=== PATIENT | female | born 1940 | race Caucasian/White ===

== ENCOUNTER 2022-12-28 08:30 | Emergency (ER) | payer BC, MEDICARE, OTHER | END 2022-12-28 10:29 | disposition home or self-care (01) | LOC: JD.ED 08:30 | DX: M79.621 Pain in right upper arm (principal); I10 Essential (primary) hypertension; E11.9 Type 2 diabetes mellitus without complications; Z91.012 Allergy to eggs; Z86.16 Personal history of COVID-19; W19.XXXA Unspecified fall, initial encounter | CPT/HCPCS: 73060-26-RT; 73060-RT; 99283 ==

== ENCOUNTER 2023-05-10 17:25 | Emergency (ER) | payer MEDICARE ==
[2023-05-10] MEDS ORDERED: Sodium Chloride 0.9% 10 ML Syringe FLUSH PRN (18:30)
[2023-05-10 18:37] LABS: BASOPHILS ABSOLUTE AUTO 0.02 K/mm3 (0.01-0.08); BASOPHILS PERCENT AUTO 0.3 % (0.1-1.2); EOSINOPHILS ABSOLUTE AUTO 0.09 K/mm3 (0.04-0.36); EOSINOPHILS PERCENT AUTO 1.6 (0.7-5.8); HEMATOCRIT 40.8 % (34.1-44.9); HEMOGLOBIN 13.7 gm/dl (11.2-15.7); LYMPHOCYTES PERCENT AUTO 46.6 % (19.3-51.7); MEAN CORPUSCULAR HEMOGLOBIN 30.9 pg (25.6-32.2); MEAN CORPUSCULAR HGB CONC 33.6 g/dl (32.2-35.5); MEAN CORPUSCULAR VOLUME 92.1 fl (79.4-94.8); MEAN PLATELET VOLUME 9.8 fl (9.4-12.3); MONOCYTES ABSOLUTE AUTO 0.52 K/mm3 (0.24-0.36); NEUTROPHILS ABSOLUTE AUTO 2.46 K/mm3 (1.56-6.13); NEUTROPHILS PERCENT AUTO 42.5 % (34.0-71.1); PLATELET COUNT,PLT 203 K/mm3 (182-369); RED BLOOD CELL COUNT 4.43 M/mm3 (3.98-5.22); WHITE BLOOD CELL COUNT,WBC 5.79 K/mm3 (3.98-10.04)
[2023-05-10 18:46] LABS: INR 1.04; PROTHROMBIN TIME 11.1 SECONDS (9.7-12.0)
[2023-05-10 18:48] LABS: PTT,PARTIAL THROMBOPLSTIN TIME 25.6 SECONDS (21.7-31.4)
[2023-05-10 19:03] LABS: D-DIMER QUANTITATIVE 0.56 mg/L (0.19-0.50)
[2023-05-10 19:06] LABS: A/G RATIO 1.2 (1-2); ALANINE AMINOTRANSFERASE,ALT 37 U/L (14-59); ALBUMIN 3.6 g/dl (3.4-5.0); ALKALINE PHOSPHATASE 80 U/L (46-116); ANION GAP 11.7 (5-15); ASPARTATE AMNIOTRANSFERASE,AST 26 U/L (15-37); BILIRUBIN TOTAL 0.6 mg/dL (0.2-1.0); BLOOD UREA NITROGEN,BUN 13 mg/dL (7-18); CALCIUM 9.3 mg/dL (8.5-10.1); CARBON DIOXIDE,CO2 26 mEq/L (21-32); CHLORIDE,CL 104 mEq/L (98-107); ESTIMATED GFR 57 mL/min (>60); GLUCOSE RANDOM 217 mg/dL (70-99); MAGNESIUM 1.8 mg/dL (1.8-2.4); POTASSIUM,K 3.7 mEq/L (3.5-5.1); PROTEIN TOTAL,TP 6.7 g/dl (6.4-8.2); SODIUM,NA 138 mEq/L (136-145)
[2023-05-10 19:09] LABS: TROPONIN I HIGH SENSITIVITY < 4 pg/mL (<=51)
== END 2023-05-10 22:20 | disposition home or self-care (01) ==
LOC: JD.ED 17:25
DX: R07.89 Other chest pain (principal); E11.9 Type 2 diabetes mellitus without complications; I10 Essential (primary) hypertension; E03.9 Hypothyroidism, unspecified; Z91.012 Allergy to eggs; Z86.16 Personal history of COVID-19
CPT/HCPCS: 36415; 71045; 80053; 83735; 83880; 84484; 85025; 85379; 85610; 85730; 93005; 99285; J3490

== ENCOUNTER 2023-05-31 10:18 | Emergency (ER) | payer MEDICARE ==
[2023-05-31] MEDS ORDERED: Acetaminophen/HYDROcodone 325-10 MG Tab PO ONE (11:11)
== END 2023-05-31 12:15 | disposition home or self-care (01) ==
LOC: JD.ED 10:18
DX: M25.511 Pain in right shoulder (principal); I10 Essential (primary) hypertension; E11.9 Type 2 diabetes mellitus without complications; E03.9 Hypothyroidism, unspecified; Z91.012 Allergy to eggs; Z86.16 Personal history of COVID-19
CPT/HCPCS: 73030; 99283; A9270

== ENCOUNTER 2023-06-26 18:59 | Emergency (ER) | payer MEDICARE ==
[2023-06-26] MEDS ORDERED: Sodium Chloride 0.9% 10 ML Syringe FLUSH PRN (19:26)
[2023-06-26 19:37] LABS: BASOPHILS ABSOLUTE AUTO 0.04 K/mm3 (0.01-0.08); BASOPHILS PERCENT AUTO 0.5 % (0.1-1.2); EOSINOPHILS ABSOLUTE AUTO 0.24 K/mm3 (0.04-0.36); EOSINOPHILS PERCENT AUTO 3.2 (0.7-5.8); HEMATOCRIT 41.9 % (34.1-44.9); HEMOGLOBIN 14.1 gm/dl (11.2-15.7); IMMATURE GRAN ABSOLUTE AUTO 0.01 K/mm3 (0.00-0.10); IMMATURE GRAN PERCENT AUTO 0.1 % (<=1.0); LYMPHOCYTES ABSOLUTE AUTO 3.62 K/mm3 (1.18-3.74); LYMPHOCYTES PERCENT AUTO 47.7 % (19.3-51.7); MEAN CORPUSCULAR HEMOGLOBIN 30.4 pg (25.6-32.2); MEAN CORPUSCULAR HGB CONC 33.7 g/dl (32.2-35.5); MEAN CORPUSCULAR VOLUME 90.3 fl (79.4-94.8); MEAN PLATELET VOLUME 9.4 fl (9.4-12.3); MONOCYTES ABSOLUTE AUTO 0.67 K/mm3 (0.24-0.36); MONOCYTES PERCENT AUTO 8.8 % (4.7-12.5); NEUTROPHILS ABSOLUTE AUTO 3.01 K/mm3 (1.56-6.13); NEUTROPHILS PERCENT AUTO 39.7 % (34.0-71.1); PLATELET COUNT,PLT 250 K/mm3 (182-369); RED BLOOD CELL COUNT 4.64 M/mm3 (3.98-5.22); WHITE BLOOD CELL COUNT,WBC 7.59 K/mm3 (3.98-10.04)
[2023-06-26 19:47] LABS: A/G RATIO 1.1 (1-2); ALBUMIN 3.6 g/dl (3.4-5.0); ANION GAP 13.3 (5-15); BILIRUBIN TOTAL 0.5 mg/dL (0.2-1.0); CALCIUM 9.9 mg/dL (8.5-10.1); EST CRCL DRUG DOSING (CG) 37.45 mL/min; MAGNESIUM 1.9 mg/dL (1.8-2.4); POTASSIUM,K 4.3 mEq/L (3.5-5.1); PROTEIN TOTAL,TP 6.9 g/dl (6.4-8.2)
[2023-06-26 19:56] LABS: INR 1.17; PROTHROMBIN TIME 12.4 SECONDS (9.7-12.0)
[2023-06-26 20:02] LABS: D-DIMER QUANTITATIVE 0.8 mg/L (0.19-0.50)
== END 2023-06-26 20:30 | disposition home or self-care (01) ==
LOC: JD.ED 18:59
DX: R07.89 Other chest pain (principal); I25.10 Atherosclerotic heart disease of native coronary artery without angina pectoris; E78.00 Pure hypercholesterolemia, unspecified; I10 Essential (primary) hypertension; K21.9 Gastro-esophageal reflux disease without esophagitis; E11.9 Type 2 diabetes mellitus without complications; E03.9 Hypothyroidism, unspecified; Z91.012 Allergy to eggs; Z86.711 Personal history of pulmonary embolism; Z86.16 Personal history of COVID-19
CPT/HCPCS: 36415; 71045; 80053; 83735; 84484; 85025; 85379; 85610; 93005; 99285; J3490; 93010; 99284

== ENCOUNTER 2023-07-11 20:30 | Emergency (ER) | payer MEDICARE ==
[2023-07-11] MEDS ORDERED: Sodium Chloride 0.9% 10 ML Syringe FLUSH PRN (20:47)
[2023-07-11 20:57] LABS: BASOPHILS ABSOLUTE AUTO 0.02 K/mm3 (0.01-0.08); BASOPHILS PERCENT AUTO 0.3 % (0.1-1.2); EOSINOPHILS PERCENT AUTO 1.7 (0.7-5.8); HEMATOCRIT 40.7 % (34.1-44.9); IMMATURE GRAN ABSOLUTE AUTO 0.01 K/mm3 (0.00-0.10); IMMATURE GRAN PERCENT AUTO 0.2 % (<=1.0); LYMPHOCYTES ABSOLUTE AUTO 2.22 K/mm3 (1.18-3.74); LYMPHOCYTES PERCENT AUTO 38.7 % (19.3-51.7); MEAN CORPUSCULAR HEMOGLOBIN 30.6 pg (25.6-32.2); MEAN CORPUSCULAR HGB CONC 34.4 g/dl (32.2-35.5); MEAN CORPUSCULAR VOLUME 89.1 fl (79.4-94.8); MEAN PLATELET VOLUME 9.3 fl (9.4-12.3); MONOCYTES ABSOLUTE AUTO 0.55 K/mm3 (0.24-0.36); MONOCYTES PERCENT AUTO 9.6 % (4.7-12.5); NEUTROPHILS ABSOLUTE AUTO 2.84 K/mm3 (1.56-6.13); NEUTROPHILS PERCENT AUTO 49.5 % (34.0-71.1); PLATELET COUNT,PLT 172 K/mm3 (182-369); RED BLOOD CELL COUNT 4.57 M/mm3 (3.98-5.22); WHITE BLOOD CELL COUNT,WBC 5.74 K/mm3 (3.98-10.04)
[2023-07-11 21:16] LABS: INR 1.4; PROTHROMBIN TIME 14.6 SECONDS (9.7-12.0)
[2023-07-11 21:28] LABS: A/G RATIO 1.1 (1-2); ALANINE AMINOTRANSFERASE,ALT 36 U/L (14-59); ALBUMIN 3.5 g/dl (3.4-5.0); ALKALINE PHOSPHATASE 93 U/L (46-116); ANION GAP 14.5 (5-15); ASPARTATE AMNIOTRANSFERASE,AST 22 U/L (15-37); BILIRUBIN TOTAL 0.5 mg/dL (0.2-1.0); BLOOD UREA NITROGEN,BUN 20 mg/dL (7-18); BUN/CREATININE RATIO 15.4 (14-18); CALCIUM 9.6 mg/dL (8.5-10.1); CARBON DIOXIDE,CO2 25 mEq/L (21-32); CHLORIDE,CL 101 mEq/L (98-107); CREATININE 1.3 mg/dL (0.55-1.02); ESTIMATED GFR 41 mL/min (>60); GLUCOSE RANDOM 256 mg/dL (70-99); MAGNESIUM 1.8 mg/dL (1.8-2.4); POTASSIUM,K 4.5 mEq/L (3.5-5.1); PROTEIN TOTAL,TP 6.7 g/dl (6.4-8.2); SODIUM,NA 136 mEq/L (136-145)
[2023-07-11 21:29] LABS: TROPONIN I HIGH SENSITIVITY < 4 pg/mL (<=51)
[2023-07-11] MEDS ORDERED: Aspirin 81 MG Tab.Chew PO ONE (22:06)
[2023-07-11 23:10] LABS: APPEARANCE,URINE SLT CLOUDY (Clear); BILIRUBIN,URINE NEGATIVE (Negative); COLOR,URINE YELLOW (Yellow); GLUCOSE,URINE 3+ (Negative); KETONES,URINE NEGATIVE (Negative); LEUKOCYTE ESTERASE,URINE NEGATIVE (Negative); NITRITE,URINE POSITIVE (Negative); OCCULT BLOOD,URINE NEGATIVE (Negative); PROTEIN,URINE NEGATIVE (Negative); UROBILINOGEN,URINE 0.2 (0.2-1.0)
[2023-07-11 23:20] LABS: BACTERIA,URINE MANY /hpf (FEW); EPITHELIAL CELLS,URINE 0-5 /hpf (0-5); RBC,URINE NOT SEEN /hpf (0-5); WBC CLUMPS,URINE RARE /hpf (NOT SEEN)
[2023-07-11 23:21] LABS: MUCUS,URINE NOT SEEN /hpf (FEW)
== END 2023-07-12 00:37 | disposition home or self-care (01) ==
LOC: JD.ED 20:30
DX: R07.9 Chest pain, unspecified (principal); I25.10 Atherosclerotic heart disease of native coronary artery without angina pectoris; I10 Essential (primary) hypertension; E11.9 Type 2 diabetes mellitus without complications; Z91.012 Allergy to eggs; Z86.16 Personal history of COVID-19; Z87.891 Personal history of nicotine dependence
CPT/HCPCS: 36415; 71045; 71045-26; 80053; 81001; 83735; 83880; 84484; 85025; 85379; 85610; 85730; 93005; 93010; 99284; 99285; A9270-GY

== ENCOUNTER 2024-04-08 03:12 | Emergency (ER) | payer MEDICARE ==
[2024-04-08] MEDS: Acetaminophen 325 MG Tab PO ONE (03:38)
== END 2024-04-08 05:28 | disposition home or self-care (01) ==
LOC: JD.ED 03:12
DX: S00.03XA Contusion of scalp, initial encounter (principal); M25.551 Pain in right hip; I48.91 Unspecified atrial fibrillation; Z79.01 Long term (current) use of anticoagulants; I25.10 Atherosclerotic heart disease of native coronary artery without angina pectoris; E78.00 Pure hypercholesterolemia, unspecified; K21.9 Gastro-esophageal reflux disease without esophagitis; E11.9 Type 2 diabetes mellitus without complications; E03.9 Hypothyroidism, unspecified; E66.9 Obesity, unspecified; Z95.5 Presence of coronary angioplasty implant and graft; Z79.899 Other long term (current) drug therapy; Z79.84 Long term (current) use of oral hypoglycemic drugs; Z88.7 Allergy status to serum and vaccine; Z88.8 Allergy status to other drugs, medicaments and biological substances; W18.2XXA Fall in (into) shower or empty bathtub, initial encounter; Z68.26 Body mass index [BMI] 26.0-26.9, adult; Y92.002 Bathroom of unspecified non-institutional (private) residence as the place of occurrence of the external cause
CPT/HCPCS: 70450; 72125; 72170; 73502; 99284; A9270; 99283

== ENCOUNTER 2024-06-04 22:27 | Inpatient (IN) | payer MEDICARE ==
[2024-06-05 00:08] LABS: BASOPHILS PERCENT AUTO 0.1 % (0.0-1.0); EOSINOPHILS ABSOLUTE AUTO 0.2 K/mm3 (0.0-0.4); EOSINOPHILS PERCENT AUTO 1.7 % (0.0-6.0); HEMATOCRIT 39.3 % (37.0-47.0); HEMOGLOBIN 13.8 gm/dl (12.0-16.0); IMMATURE GRAN ABSOLUTE AUTO 0.04 K/mm3 (0.00-0.05); IMMATURE GRAN PERCENT AUTO 0.4 % (0.0-0.4); LYMPHOCYTES ABSOLUTE AUTO 2.5 K/mm3 (1.0-4.8); LYMPHOCYTES PERCENT AUTO 26.7 % (24.0-44.0); MEAN CORPUSCULAR HEMOGLOBIN 30.9 pg (28.0-32.0); MEAN CORPUSCULAR HGB CONC 35.1 g/dl (32.0-36.0); MEAN CORPUSCULAR VOLUME 88.1 fl (83.0-99.0); MEAN PLATELET VOLUME 9.8 fl (9.4-12.3); MONOCYTES ABSOLUTE AUTO 0.7 K/mm3 (0.0-0.8); MONOCYTES PERCENT AUTO 6.9 % (0.0-8.0); NEUTROPHILS ABSOLUTE AUTO 6.1 K/mm3 (1.8-7.7); NEUTROPHILS PERCENT AUTO 64.2 % (41.0-71.0); PLATELET COUNT,PLT 181 K/mm3 (150-400); RED BLOOD CELL COUNT 4.46 M/mm3 (4.10-5.30)
[2024-06-05 00:26] LABS: INR 1.07; PROTHROMBIN TIME 11.3 SECONDS (9.7-12.0)
[2024-06-05 00:27] LABS: PTT,PARTIAL THROMBOPLSTIN TIME 23.7 SECONDS (21.7-31.4)
[2024-06-05 00:30] LABS: A/G RATIO 1.1 (1-2); ALBUMIN 3.3 g/dl (3.4-5.0); ANION GAP 11.2 (5-15); BILIRUBIN TOTAL 0.6 mg/dL (0.2-1.0); CALCIUM 9.4 mg/dL (8.5-10.1); CREATININE 0.8 mg/dL (0.55-1.02); EST CRCL DRUG DOSING (CG) 42.14 mL/min; POTASSIUM,K 4.2 mEq/L (3.5-5.1); PROTEIN TOTAL,TP 6.3 g/dl (6.4-8.2)
[2024-06-05] MEDS ORDERED: Naloxone 0.4 MG/ML SDV IVPUSH PRN (00:32)
[2024-06-05] MEDS: Morphine 2 MG/ML SYRINGE IVPUSH PRN (00:42)
[2024-06-05] MEDS: Sodium Chloride 0.9% 10 ML Syringe FLUSH PRN (00:43)
[2024-06-05] MEDS ORDERED: Ondansetron 4 MG/2 ML SDV IVPUSH PRN (06:38)
[2024-06-05] MEDS ORDERED: Docusate Sodium 100 MG Cap PO PRN (09:08)
[2024-06-05] MEDS ORDERED: Heparin Sodium 5,000 Units/ML Vial SUBCUT SCH (09:30)
[2024-06-05] MEDS: Metoprolol Tartrate 100 MG Tab PO SCH (10:16)
[2024-06-05] MEDS: Sertraline 25 MG Tab PO SCH (10:17)
[2024-06-05] MEDS: Insulin Lispro 100 Unit/ML 3 ML KwikPen SUBCUT SCH (11:31)
[2024-06-05] MEDS: Insulin Glargine,Human Rec. Analog 100 Units/ML 3 ML Pen SUBCUT SCH (12:56)
[2024-06-05] MEDS: Nystatin Topical Powder 15 GM Bottle TOP SCH (14:14)
[2024-06-05] MEDS ORDERED: Cyclobenzaprine 10 MG Tab PO PRN (15:17)
[2024-06-05] MEDS: Isosorbide Mononitrate 30 MG Tab.ER PO SCH (16:57)
[2024-06-05] MEDS: Insulin Glargine,Human Rec. Analog 100 Units/ML 3 ML Pen SUBCUT ONE (18:07)
[2024-06-05] MEDS: Temazepam 15 MG Cap PO SCH (21:25)
[2024-06-05] MEDS: Donepezil 10 MG Tab PO SCH (21:26)
[2024-06-05] MEDS: Apixaban 2.5 MG Tab PO SCH (21:26)
[2024-06-05] MEDS: Rosuvastatin 10 MG Tab PO SCH (21:29)
[2024-06-05] MEDS: traZODone 50 MG Tab PO SCH (21:30)
[2024-06-06 04:55] LABS: BASOPHILS PERCENT AUTO 0.1 % (0.0-1.0); EOSINOPHILS ABSOLUTE AUTO 0.2 K/mm3 (0.0-0.4); EOSINOPHILS PERCENT AUTO 2.2 % (0.0-6.0); HEMATOCRIT 36.7 % (37.0-47.0); HEMOGLOBIN 12.8 gm/dl (12.0-16.0); IMMATURE GRAN ABSOLUTE AUTO 0.02 K/mm3 (0.00-0.05); IMMATURE GRAN PERCENT AUTO 0.2 % (0.0-0.4); LYMPHOCYTES ABSOLUTE AUTO 2.3 K/mm3 (1.0-4.8); LYMPHOCYTES PERCENT AUTO 25.2 % (24.0-44.0); MEAN CORPUSCULAR HEMOGLOBIN 30.1 pg (28.0-32.0); MEAN CORPUSCULAR HGB CONC 34.9 g/dl (32.0-36.0); MEAN CORPUSCULAR VOLUME 86.4 fl (83.0-99.0); MEAN PLATELET VOLUME 10.2 fl (9.4-12.3); MONOCYTES ABSOLUTE AUTO 0.8 K/mm3 (0.0-0.8); MONOCYTES PERCENT AUTO 8.5 % (0.0-8.0); NEUTROPHILS ABSOLUTE AUTO 5.9 K/mm3 (1.8-7.7); NEUTROPHILS PERCENT AUTO 63.8 % (41.0-71.0); PLATELET COUNT,PLT 141 K/mm3 (150-400); RED BLOOD CELL COUNT 4.25 M/mm3 (4.10-5.30); WHITE BLOOD CELL COUNT,WBC 9.25 K/mm3 (3.9-11.3)
[2024-06-06 05:23] LABS: A/G RATIO 0.9 (1-2); ALBUMIN 2.8 g/dl (3.4-5.0); ANION GAP 12.7 (5-15); BILIRUBIN TOTAL 0.6 mg/dL (0.2-1.0); BUN/CREATININE RATIO 16.7 (14-18); CALCIUM 9.1 mg/dL (8.5-10.1); CREATININE 0.6 mg/dL (0.55-1.02); EST CRCL DRUG DOSING (CG) 56.19 mL/min; MAGNESIUM 1.5 mg/dL (1.8-2.4); PROTEIN TOTAL,TP 5.8 g/dl (6.4-8.2)
[2024-06-06 05:32] LABS: POTASSIUM,K 3.7 mEq/L (3.5-5.1)
[2024-06-06] MEDS: Levothyroxine 100 MCG Tab PO SCH (06:28)
[2024-06-06] MEDS ORDERED: Non-Formulary Medication 1 Each (Omeprazole Magnesium [Prilosec Otc] 20 MG Tablet.Dr) PO SCH (08:00)
[2024-06-06] MEDS: Magnesium Sulfate/Water 2 GM in Premix Bag 1 BAG IV ONE (08:53)
[2024-06-06] MEDS: oxyCODONE 5 MG Tab PO PRN (08:55)
[2024-06-06] MEDS: Pantoprazole 40 MG Tab.CR PO SCH (08:56)
[2024-06-06] MEDS: Spironolactone 25 MG Tab PO SCH (08:56)
[2024-06-06] MEDS: Docusate Sodium 100 MG Cap PO SCH (08:56)
[2024-06-06] MEDS: Multivitamin Tab PO SCH (08:56)
[2024-06-06] MEDS: Insulin Glargine,Human Rec. Analog 100 Units/ML 3 ML Pen SUBCUT SCH (08:58)
[2024-06-06] MEDS: Polyethylene Glycol 3350 Powder 17 GM Packet PO PRN (09:38)
[2024-06-06] MEDS: Losartan 100 MG Tab PO SCH (12:28)
[2024-06-07 06:53] LABS: A/G RATIO 0.8 (1-2); ALBUMIN 2.7 g/dl (3.4-5.0); ANION GAP 11.4 (5-15); BILIRUBIN TOTAL 0.8 mg/dL (0.2-1.0); BUN/CREATININE RATIO 15.6 (14-18); CALCIUM 9.1 mg/dL (8.5-10.1); CREATININE 0.9 mg/dL (0.55-1.02); EST CRCL DRUG DOSING (CG) 37.46 mL/min; MAGNESIUM 1.3 mg/dL (1.8-2.4); PROTEIN TOTAL,TP 5.9 g/dl (6.4-8.2)
[2024-06-07 07:36] LABS: POTASSIUM,K 4.4 mEq/L (3.5-5.1)
[2024-06-07] MEDS: Magnesium Sulfate/Water 4 GM in Premix Bag 1 BAG IV ONE (08:16)
[2024-06-07] MEDS: Insulin Glargine,Human Rec. Analog 100 Units/ML 3 ML Pen SUBCUT SCH (08:17)
[2024-06-07] MEDS: Magnesium Oxide 400 MG Tab PO SCH (11:25)
[2024-06-08] MEDS: Acetaminophen 325 MG Tab PO PRN (03:34)
== END 2024-06-08 13:08 | DRG 536 ==
LOC: JD.ED 22:27 → JD.MS 06-05 07:43
PROVIDERS: ADMIT Family Medicine; ATTEND Family Medicine
DX: S72.111A Displaced fracture of greater trochanter of right femur, initial encounter for closed fracture (principal); M97.01XA Periprosthetic fracture around internal prosthetic right hip joint, initial encounter; F03.94 Unspecified dementia, unspecified severity, with anxiety; F03.93 Unspecified dementia, unspecified severity, with mood disturbance; Z66 Do not resuscitate; I10 Essential (primary) hypertension; E11.9 Type 2 diabetes mellitus without complications; E66.9 Obesity, unspecified; Z86.16 Personal history of COVID-19; E03.9 Hypothyroidism, unspecified; M19.90 Unspecified osteoarthritis, unspecified site; K21.9 Gastro-esophageal reflux disease without esophagitis; I25.10 Atherosclerotic heart disease of native coronary artery without angina pectoris; Z68.28 Body mass index [BMI] 28.0-28.9, adult; W10.8XXA Fall (on) (from) other stairs and steps, initial encounter; E78.00 Pure hypercholesterolemia, unspecified; B35.9 Dermatophytosis, unspecified; E83.42 Hypomagnesemia; Z86.711 Personal history of pulmonary embolism; Z79.01 Long term (current) use of anticoagulants; Z95.5 Presence of coronary angioplasty implant and graft; Z88.7 Allergy status to serum and vaccine; Z88.8 Allergy status to other drugs, medicaments and biological substances; Z79.899 Other long term (current) drug therapy; Z79.890 Hormone replacement therapy; Z96.641 Presence of right artificial hip joint; Z98.49 Cataract extraction status, unspecified eye; Z90.710 Acquired absence of both cervix and uterus; Z90.49 Acquired absence of other specified parts of digestive tract; W10.9XXA Fall (on) (from) unspecified stairs and steps, initial encounter
CPT/HCPCS: 36415; 73502; 80053; 83036; 85025; 85610; 85730; 96374; 99284; J2270 ×2; J3490; 82947; 83735; 94760; 94761; 97110-GP; 97116-GP; 97161-GP; 97530-GP; A9270-GY; J1815; J1815-GY; J3475; U0002